=== PATIENT | female | born 1965 | race Caucasian/White ===

== ENCOUNTER → 2023-12-09 13:13 | Outpatient (REF) | payer OTHER, SELFPAY | LOC: HWRAD 13:13 | PROVIDERS: ATTENDING PHYSICIAN Family Medicine | DX: N20.0 Calculus of kidney (principal) | CPT/HCPCS: 76775 ==

== ENCOUNTER → 2023-12-23 16:56 | Outpatient (REF) | payer OTHER, SELFPAY | LOC: HWRAD 16:56 | PROVIDERS: ATTENDING PHYSICIAN Family Medicine | DX: R07.81 Pleurodynia (principal) | CPT/HCPCS: 71101 ==

== ENCOUNTER → 2024-01-16 09:56 | Outpatient (REF) | payer OTHER, SELFPAY | LOC: HWRAD 09:56 | PROVIDERS: ATTENDING PHYSICIAN Specialist; FAMILY PHYSICIAN Family Medicine | DX: N20.0 Calculus of kidney (principal) | CPT/HCPCS: 74018 ==

== ENCOUNTER → 2024-06-04 09:14 | Outpatient (REF) | payer OTHER, SELFPAY | LOC: HWWDC 09:14 | PROVIDERS: ATTENDING PHYSICIAN Obstetrics & Gynecology; FAMILY PHYSICIAN Family Medicine | DX: Z12.31 Encounter for screening mammogram for malignant neoplasm of breast (principal) | CPT/HCPCS: 77063; 77067 ==

== ENCOUNTER 2025-03-31 13:48 | Inpatient (IN) | payer OTHER, SELFPAY ==
[2025-03-31] VITALS (20 sets, daily range): BP systolic 91–133; BP diastolic 49–92; BMI 30.4
[2025-03-31 12:19] LABS: Hematocrit 44.2 % (37.0-47.0); Hemoglobin 14.9 g/dL (12.0-16.0); Mean Corp Hgb Conc. 33.7 g/dL (33.0-37.0); Mean Corpuscular Volume 88.8 fL (81.0-99.0); Nucleated Red Blood Cells % 0 %; Platelet Count 171 10^3/uL (130-400); Red Cell Dist. Width 12.3 % (11.5-14.5)
[2025-03-31 12:31] LABS: INR 1.17; PT 15.2 Sec (11.4-14.6)
[2025-03-31 12:32] LABS: APTT 20.3 Sec (23.4-35.0)
[2025-03-31 12:37] LABS: Blood Urea Nitrogen 14 mg/dl (7-17); Calcium 10.1 mg/dl (8.4-10.2); Carbon Dioxide 22 mmol/L (22-30); Chloride 109 mmol/L (98-107); Estimated Creatinine Clearance 91 ml/min; Glucose 127 mg/dl (70-99); Sodium 139 mmol/L (135-145); eGFR > 60.00
[2025-03-31 12:43] LABS: Troponin I < 0.012 ng/ml
--- NOTE | 2025-03-31 12:43 | EDRN ---
cardiology currently at the pts bedside
--- NOTE | 2025-03-31 12:59 | ED.GENMED ---
History of Present Illness
General
Chief Complaint: Chest Pain
Source: patient
Exam Limitations: none
Time Seen by Provider: 03/31/25 12:03
Nursing documentation reviewed up to this point in time: agreed with
History of Present Illness
History of Present Illness:
59-year-old female with a history of hypertension hyperlipidemia presents to the ER for evaluation of chest pain. Patient reports onset of symptoms 2 days ago and have been essentially constant. She says initially she thought it was heartburn but
symptoms have been persistent which prompted her to finally come to the ER for assessment. She denies any associated nausea. She denies any diaphoresis. She does have some mild shortness of breath. She denies any other acute complaints. Denies
any known cardiac history.
Past History
Past History
ED Past Medical History: Other ( previous kidney stone); Negative Asthma, HTN, Hypercholesterolemia or NIDDM
ED Past Surgical History: None
Social History
Tobacco: Smoker
Alcohol: Occasional
Personal:
Living: with family
Family History
Family History: CAD
Review of Systems
Review of Systems
All Other Systems: ROS reviewed and negative except as documented in HPI and ROS
Constitutional: Denies fever
Respiratory: Reports trouble breathing; Denies cough
Cardiac: Reports chest pain; Denies palpitations
ABD/GI: Denies abdominal pain, nausea or vomiting
: Denies flank pain
Musculoskeletal: Denies edema, neck pain or back pain
Neurological: Denies dizzy or headache
Phy Exam
Physical Exam
Physical Exam:
General: Awake, alert, oriented x3; somewhat anxious appearing
Head: Normocephalic, atraumatic
Eyes: Conjunctiva normal, sclera anicteric
Throat: Airway intact, handling secretions
Neck: Trachea midline, supple without meningismus
Lungs: Clear to auscultation bilaterally, no wheezing, rales, rhonchi
Heart: Tachycardia with regular rhythm, no murmurs, gallops, or rubs appreciated
Abd: Soft, non distended, nontender
Neuro: Grossly intact
Skin: Slightly pale, no rash
Extremities: No edema in extremities, equal pulses in all extremities
Scores
Heart Failure Risk
Heart Failure Risk Score: Not Applicable
Heart Score for Chest Pain Patients
STEMI patient?: Yes
Withdrawal Assessment of Alcohol
Withdrawal Assessment Completed?: Not applicable
Course
Orders/Labs/Results
Orders:
Orders
03/31/25 11:57
EKG [Electrocardiogram (*1)] Urgent
Reason for Study: Chest Pain
EKG- Treatment ONCE
03/31/25 12:07
Electrocardiogram (*1) Urgent
Reason for Study: Chest Pain
EKG- Treatment ONCE
03/31/25 12:09
Basic Metabolic Panel Urgent
Complete Blood Count/With Diff Urgent
Pro-BNP [NT-proBNP] Urgent
Troponin I Urgent
03/31/25 12:13
EKG [Electrocardiogram (*1)] Urgent
Reason for Study: Chest Pain
EKG- Treatment ONCE
03/31/25 12:16
PT/INR [Prothrombin Time] Urgent
PTT Urgent
03/31/25 12:20
Ondansetron Injectable [Zofran] 4 mg .ROUTE .[facility]
03/31/25 12:34
EKG [Electrocardiogram (*1)] Urgent
Reason for Study: Vertigo / Dizzy
EKG- Treatment ONCE
Abnormal Lab Results
03/31/25 03/31/25
12:09 12:16
MPV 10.8 H fL
(7.4-10.4)
Absolute Neuts (auto) 7.8 H 10^3/uL
(1.4-6.5)
Absolute Monos (auto) 1.1 H 10^3/uL
(0.1-0.6)
Lymphocytes % 15.3 L %
(20.5-51.1)
Monocytes % 10.2 H %
(1.7-9.3)
PT 15.2 H Sec
(11.4-14.6)
APTT 20.3 L Sec
(23.4-35.0)
Chloride 109 H mmol/L
(98-107)
Glucose 127 H mg/dl
(70-99)
03/31/25 12:09
03/31/25 12:09
Vital Signs
Initial and Last Documented VS:
Initial Vital Signs
Pulse Resp Pulse Ox
121 22 97
03/31/25 12:09 03/31/25 12:09 03/31/25 12:09
Last Documented Vital Signs
Temp Pulse Resp BP Pulse Ox
36.8 C 88 15 120/75 99
03/31/25 12:20 03/31/25 12:46 03/31/25 12:46 03/31/25 12:46 03/31/25 12:46
MDM/Problems Addressed
Differential Diagnosis Includes:
ACS, GERD, PE less likely
MDM/Problems Addressed:
59-year-old female with history as noted presents for evaluation of chest pain for the past few days. Tachycardic but otherwise normal vitals and heart rate actually improved by my assessment. Her triage EKG was concerning with some ST changes in
the inferior leads�initial EKG discussed with cardiology and borderline for STEMI. Recommended initiating ACS protocols with aspirin and Brilinta, heparin and trial of nitroglycerin with serial EKGs to see if there are any changes. Low threshold
for cardiac catheterization but hold off on STEMI alert for now.
After medications patient actually reports worsening of symptoms became diaphoretic, lightheaded, severe nausea with continued chest pain. Repeat EKG essentially stable�if anything slightly worsening elevations in the inferior leads. Discussed
with cardiology at length on multiple reassessments. Cardiology at bedside and decision made to take for cardiac catheterization. Patient escorted to Supervising Broker by me.
Chronic conditions affecting care:
Hypertension, hyperlipidemia
*Pulse Oximetry
SaO2: 99
Nasal Cannula flow liters per minute: 2
Oxygen Mode of Delivery: Room air
Patient hypoxic: no (99%)
*EKG
Interpreted by ED Provider?: Yes
Heart Rate: 107
Rate: tachycardiac
Rhythm: sinus tachycardia
Phyllis: normal axis
Interval: normal interval
QRS Pattern: normal QRS
Ischemia: ST elevation
*Critical Care Note
Total Time (30-74mins, 75-104mins- exclusive of procedures): Not Applicable
Data Reviewed
Source: patient and records
Patient Management
Discussion with other providers: Sole Splitter (Discussed at length with interventional cardiology)
Escalation/DeEscalation of care consider admission/obs:
Admission indicated�Supervising Broker
ED Attending Note
-
Portions of this chart may have been created with voice recognition software.� Occasional wrong word or��sound alike� substitutions may have occurred due to the inherent limitations of voice recognition software.
Discharge Plan
Departure
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
Date of Disposition: 03/31/25
Time of Disposition: 13:04
Admit to doctor: Ilana
Presentation/result/management discussed w/ accepting MD/DO: cardiology
Discharge Problem:
ST elevation (STEMI) myocardial infarction
Prescriptions:
No Action
ibuprofen [Advil Liqui-Gel] 200 MG capsule
200 mg PO PRN PRN (Reason: pain)
acetaminophen-codeine 1 TABLET tablet
1 tab PO Q6HPRN PRN (Reason: pain)
losartan 50 mg Tablet
50 mg PO DAILY
rosuvastatin 5 mg Tablet
5 mg PO DAILY
Referrals:
UNKNOWN - PT NOT,INTERVIEWE [Family Provider]
Interventions
Interventions:
*Risk Screen - Suicide Last Done: 03/31/25 12:20
*General Assessment Last Done: 03/31/25 12:20
*Neglect/Abuse Screening Last Done: 03/31/25 12:20
*ED- Fall Risk Assessment Last Done: 03/31/25 12:20
*ED COVID-19 Vaccine History Last Done: 03/31/25 12:20
*Nursing Disposition Last Done: 03/31/25 12:40
ED- Cardiac Assessment Last Done: 03/31/25 12:26
Discharge Date and Time
Print Language: EGYPTIAN
[2025-03-31 13:14] LABS: ACT-LR - POC 187 Seconds (116-155)
--- NOTE | 2025-03-31 13:53 | PTCARENOTE ---
Rec'd Pt s/p card cath, A,A+OX3, denies pain. R radialband intact, R femoral dsg D+I. VSS.
[2025-03-31] MEDS: NSS 1000 IV (14:37)
--- NOTE | 2025-03-31 15:47 | ITS.CL.CATH ---
Hospital Admitting Clerk - Catheterization
Cardiac Catheterization
Procedure Report:
LEFT HEART CATHETERIZATION
Date of Procedure: March 31, 2025
Referring: [facility] emergency department
PROCEDURES:
1. Left heart catheterization, coronary angiogram.
2. Moderate sedation.
INDICATION: Khadijah is a 59-year-old female with past medical history of hypertension, hyperlipidemia, family history of premature coronary artery disease in her dad with an RI in his early 60s, former smoker, quit 4 years ago, prediabetic who
presents today to the emergency room with ongoing episodes of chest discomfort over the last 2 days associated with nausea and some shortness of breath found to have a EKG concerning for possible inferior ST elevation RI after she received
sublingual nitroglycerin in the emergency room. She was given full dose aspirin in the emergency room along with 5000 units of unfractionated IV heparin and 1 sublingual nitroglycerin. She also received 180 mg of Brilinta.
ACCESS: Right radial artery, 6Fr. sheath, under US guidance.
HEMODYNAMICS : (mmHg)
AO (s/d) : 119/76
LVEDP : 19
No significant gradient across the aortic valve to suggest aortic stenosis.
CORONARY FINDINGS
Dominance: Left
Left Main Trunk (LMT): Large caliber vessel that gives rise to the LAD and LCx branches and is free of angiographic disease.
Left Anterior Descending Artery (LAD): Large caliber vessel that gives off 1 major diagonal branch as it courses along the anterior inter-ventricular groove before wrapping around the cardiac apex. No obstructive coronary artery disease. Distal to
apical LAD appears likely normal tapering however cannot definitively rule out apical LAD SCAD.
Left Circumflex Artery (LCx): Large caliber vessel that gives off 3 major obtuse marginal (OM) branches as it courses along the atrio-ventricular (AV) groove. The LCx and its branches are free of angiographic disease.
Right Coronary Artery (RCA): Small caliber non-dominant vessel with no obstructive coronary artery disease.
SEDATION: 37 minutes of procedural sedation was utilized. IV Midazolam and IV Fentanyl were administered. An independent medical oncologist was present to assist with and help manage the patient's level of consciousness and physiologic status.
RADIATION SUMMARY: Fluoro Time (min): 3.8, Dose (mGy): 227.43, DAP (Gy.cm2) : 18.6
Closure Device: There were no immediate intra-procedural complications. The sheath was pulled in the label stamper and a vascular-band applied to the right wrist for radial artery hemostasis using the patent hemostasis technique.
CONCLUSIONS
1. No obvious obstructive coronary artery disease to explain ECG changes or presenting clinical story.
2. Distal to apical LAD appears likely normal tapering however cannot definitively rule out apical LAD SCAD.
3. LVEDP of 19 mmHg.
RECOMMENDATIONS
1. Wean radial band per protocol. Monitor right hand perfusion and for bleeding from the radial site following removal of the vascular-band following trans-radial access.
2. Bedrest per protocol for femoral access.
3. Continue aggressive medical therapy and risk factor modification for secondary CAD prevention.
4. Full echocardiogram to assess biventricular function and rule out any significant valvular abnormalities.
5. Explore and rule out noncardiac causes of chest pain.
Xochitl Preciado MD, FAC, [facility]
--- NOTE | 2025-03-31 16:09 | CON.CAR ---
Consultation
Consultation Request
Date/Time Consultation Requested: 03/31/2025
Date/Time Consultation Performed: 03/31/2025
Requesting Provider: Jarvis WALKER
Performing Provider: Xochitl Preciado
Reason for Consultation: CP
Medical History
-
Chief Complaint: Chest Pain
History of Present Illness:
Khadijah is a 59-year-old female with past medical history of hypertension, hyperlipidemia, family history of premature coronary artery disease in her dad with an LA in his early 60s, former smoker, quit 4 years ago, prediabetic who presents today to
the emergency room with ongoing episodes of chest discomfort over the last 2 days associated with nausea and some shortness of breath found to have a EKG concerning for possible inferior ST elevation LA after she received sublingual nitroglycerin in
the emergency room. She was given full dose aspirin in the emergency room along with 5000 units of unfractionated IV heparin and 1 sublingual nitroglycerin. She also received 180 mg of Brilinta.
Past Medical History
Past Medical History: HTN and Hypercholesterolemia
Past Surgical History: None
Social History
Tobacco: Former Smoker (quit 4yrs ago)
Alcohol: Occasional
Drug: None
Personal:
Living: With Family
Employment: Employed
Family History
Family History: Early CAD (dad with LA in early 60s)
Allergies / Home Medications
Allergy/AdvReac Type Severity Reaction Status Date / Time
No Known Allergies Allergy Verified 05/30/16 13:36
�Medication �Instructions �Recorded �Confirmed �Type
acetaminophen 300 mg-codeine 30 mg 1 tab PO Q6HPRN PRN pain 05/30/16 03/31/25 History
tablet
ibuprofen 200 mg capsule (Advil 200 mg PO PRN PRN pain 05/30/16 03/31/25 History
Liqui-Gel)
losartan 50 mg tablet 50 mg PO DAILY 03/31/25 03/31/25 History
rosuvastatin 5 mg tablet 5 mg PO DAILY 03/31/25 03/31/25 History
Review of Systems
-
All other systems: Negative unless noted
Physical Exam
Vital Signs
Temp Pulse Resp BP Pulse Ox
98.2 F 94 22 96/83 99
03/31/25 12:20 03/31/25 12:50 03/31/25 12:50 03/31/25 12:50 03/31/25 13:05
Lab Results
03/31/25 12:09
03/31/25 12:09
Troponin I < 0.012 ng/ml 03/31/25 12:09
Nnw-I-Ouszmmotjhk Pept 180 pg/ml 03/31/25 12:09
Physical Exam
General: Well Developed, Well Nourished and Other (mild distress from CP)
Respiratory: Clear and Non Labored Respirations; Negative Wheezes or Crackles
Cardiac: S1/S2 and Regular Rhythm; Negative Murmur or Rub
Breast: Deferred by me
GI: Soft, Non Tender, Non Distended and Normal Bowel Sounds
Musculoskeletal: No Clubbing, No Cyanosis and No Edema
Skin: Warm
Neuro: AO x 3 and Nonfocal/Grossly Intact
Psych: Calm
Impression / Plan
-
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
Chest pain
ECG with inferior ST elevation however heart catheterization with no clear etiology: Distal to apical LAD appears likely normal tapering however cannot definitively rule out spontaneous coronary artery dissection (scad)
Hypertension
Hyperlipidemia
Former smoker, quit 4 years ago
Premature coronary artery disease in dad in early 60s
Recommendations:
1. Full echocardiogram to assess biventricular function and rule out any significant valvular disease.
2. Continue monitoring on telemetry with trending troponins and EKGs.
3. Continue daily baby aspirin, high intensity statin, low-dose beta-makayla. No clear indication for second antiplatelet agent.
4. Workup noncardiac causes of chest pain.
5. Aggressive management of cardiovascular risk factors.
6. Management of radial artery access and femoral access.
Xochitl Preciado MD, FAC, [facility]
Data Reviewed
-
EKG: Tracing Personally Visualized and interpreted
Radiology: Report Reviewed by me
Labs: Labs Reviewed by me
Old Records: Reviewed
Critical Care Time (in minutes): 34
[2025-03-31 16:22] LABS: Troponin I < 0.012 ng/ml
--- NOTE | 2025-03-31 16:42 | HPS.HSE ---
Family Physician
-
Family Physician: INTERVIEWE UNKNOWN - PT NOT
Chief Complaint
-
Chest pain
History of Present Illness
59-year-old female developed substernal chest pain Vj night and lasted till this morning when she decided to get it evaluated in the emergency room. Has never had chest pain like this before.
[place] like a sharp pain worse with deep breathing. Relieved by lying on her right side, worse when lying on her left side.
No significant shortness of breath or dyspnea. Does have mild heartburn occasionally.
Yesterday had chills and mild flulike symptoms but subsequently resolved. No associated sore throat or cough.
Denies any lower extremity pain or swelling.
Denies history of DVT or PE.
History of heavy smoking, quit 4 years ago. Rarely drinks alcohol.
No history of malignancy. Not on hormonal therapy.
Only travel is driving to [place] to visit her parents.
Chest pain resolved completely during my assessment.
Medical History
Past Medical History
Past Medical History: Reports Other
Additional Past Medical History:
Essential hypertension
Hyperlipidemia
Past Surgical History: Reports None
Social History
Tobacco: Former Smoker
Alcohol: Occasional
Drug: None
Employment: Employed
Family History
Family History: CAD (Father) and Other (Sister with adrenal tumor)
Allergies / Home Medications
Allergies reflects when Allergies were last updated in [email or web address].
Home Medications with original date entered in [email or web address]
Allergy/Medication List:
Allergies
Allergy/AdvReac Type Severity Reaction Status Date / Time
No Known Allergies Allergy Verified 05/30/16 13:36
Home Medications
acetaminophen 300 mg-codeine 30 mg tablet 1 tab PO Q6HPRN PRN pain 05/30/16
ibuprofen 200 mg capsule (Advil Liqui-Gel) 200 mg PO PRN PRN pain 05/30/16
losartan 50 mg tablet 50 mg PO DAILY 03/31/25
rosuvastatin 5 mg tablet 5 mg PO DAILY 03/31/25
Review of Systems
-
History Source: Patient
A 12 point ROS was completed and negative except as noted: Yes
Physical Exam
Vital Signs
Vital Signs
Temp Pulse Resp BP Pulse Ox
98.2 F 86 20 100/78 98
03/31/25 16:12 03/31/25 16:15 03/31/25 16:12 03/31/25 16:00 03/31/25 16:15
Physical Exam
General: Well Developed, Well Nourished, No Apparent Distress and Comfortable
HEENT: NormoCephalic, Anicteric and Moist mucous membranes
Respiratory: Clear
Cardiac: S1/S2 and Regular Rhythm
Breast: Deferred by me
GI: Soft, Non Tender and Non Distended
Genito-urinary: Deferred by me
Musculoskeletal: No Clubbing, No Cyanosis and No Edema
Skin: Warm and Dry
Neuro: AO x 3
Hematologic/Lymphatic: No Lymphadenopathy
Psych: Calm
Laboratory Results
-
03/31/25 12:09
03/31/25 12:09
Laboratory Results
PT 15.2 Sec (11.4-14.6) H 03/31/25 12:16
INR 1.17 03/31/25 12:16
APTT 20.3 Sec (23.4-35.0) L 03/31/25 12:16
Total Bilirubin Cancelled 03/31/25 12:09
AST Cancelled 03/31/25 12:09
ALT Cancelled 03/31/25 12:09
Alkaline Phosphatase Cancelled 03/31/25 12:09
Troponin I < 0.012 ng/ml 03/31/25 15:46
Impression/Plan
-
Chest pain -ACS essentially ruled out, cardiac catheterization without obstructive CAD. Discussed with ruching machine operator, Dr Preciado. Clinically unlikely to be spontaneous coronary artery dissection. Troponin x 2 negative.
At this point we do not have a clear diagnosis as to etiology of her chest pain. Differential diagnosis remains broad including esophagitis, acid reflux, pulmonary embolism, or other.
D-dimer ordered. 2 view chest x-ray ordered.
IV Protonix ordered.
Admit to IVU.
Cardiology consulted. Echocardiogram in the morning.
Essential hypertension -controlled on losartan.
Hyperlipidemia -on rosuvastatin.
Obesity due to excess calories
Full code
[2025-03-31] MEDS: PROTONIX IV 40 MG IV (16:55)
[2025-03-31] MEDS: NSS (PRESERVATIVE FREE) 10 ML IV (16:56)
[2025-03-31] MEDS: FLUSH (NSS) 2 FLUSH IV (16:56)
[2025-03-31 18:02] LABS: COVID-19 Antigen Negative (Negative)
[2025-03-31 18:06] LABS: Hepatitis C Antibody Negative (Negative)
[2025-03-31 18:11] LABS: D-Dimer 0.27 ug/mlFEU (0.00-0.50)
[2025-03-31] MEDS: TOPROL XL 12.5 MG PO (18:39)
[2025-03-31] MEDS: LOVENOX 40 MG SC (18:40)
--- NOTE | 2025-03-31 19:24 | PTCARENOTE ---
Pt refused 1800 dose of Rosuvastatin, she takes only 5 mg at home and didn't want to take 20 mg.
[2025-04-01 00:15] LABS: Troponin I < 0.012 ng/ml
--- NOTE | 2025-04-01 00:58 | PTCARENOTE ---
Assumed care of the pt @ 1900. Pt is AAOx3 SR on the monitor VSS Rt rad and rt fem cath site dressing c/d/i. Call pimentel within reach.
[2025-04-01] MEDS: TYLENOL 650 MG PO (02:15)
[2025-04-01 02:18] VITALS: BP 138/68
[2025-04-01 05:22] VITALS: BP 129/80
[2025-04-01 05:58] LABS: Hematocrit 40.6 % (37.0-47.0); Hemoglobin 13.5 g/dL (12.0-16.0); Mean Corp Hgb Conc. 33.3 g/dL (33.0-37.0); Mean Corpuscular Volume 90.0 fL (81.0-99.0); Nucleated Red Blood Cells % 0 %; Platelet Count 179 10^3/uL (130-400); Red Cell Dist. Width 12.3 % (11.5-14.5)
[2025-04-01 06:26] LABS: Blood Urea Nitrogen 11 mg/dl (7-17); Calcium 9.7 mg/dl (8.4-10.2); Carbon Dioxide 22 mmol/L (22-30); Chloride 113 mmol/L (98-107); Estimated Creatinine Clearance 91 ml/min; Glucose 119 mg/dl (70-99); HDL Cholesterol 44 mg/dl; LDL Cholesterol, Calculated 64 mg/dl; Potassium 4.5 mmol/L (3.5-5.1); Sodium 142 mmol/L (135-145); Very Low Density Lipoprotein 21 mg/dl (0-30); eGFR > 60.00
[2025-04-01 06:36] LABS: Troponin I < 0.012 ng/ml
[2025-04-01 08:06] VITALS: BP 109/47
[2025-04-01 08:07] VITALS: BP 126/70
[2025-04-01] MEDS: PROTONIX IV 40 MG IV (08:14)
[2025-04-01] MEDS: LOW STRENGTH ASPIRIN 81 MG PO (08:14)
[2025-04-01] MEDS: NSS (PRESERVATIVE FREE) 10 ML IV (08:14)
[2025-04-01] MEDS: TOPROL XL 12.5 MG PO (08:14)
--- NOTE | 2025-04-01 09:36 | W.PN.CARDCBS ---
Addendum entered and electronically signed by Reji Tovar MD 04/01/25 13:51:
I saw and examined the patient.
The SPACE SYSTEMS OPERATIONS SUPERINTENDENT or PA's note was reviewed and I agree with the note.
Comment: General: Well developed, well nourished in NAD.
Neck: Supple, no JVD, HJR, carotids +2 B/L, no bruits bilaterally.
Heart: Non displaced PMI, RRR, no murmurs, No S3, S4, no rubs.
Lungs: Clear to auscultation bilaterally, no wheeze, rhonchi, rubs bilaterally,
normal expiratory phase.
Extremities: No clubbing, cyanosis or edema bilaterally.
Neuro: Grossly nonfocal, awake, alert and oriented x3.
Troponins negative, echocardiogram normal. Likely noncardiac chest pain. Discussed with primary service. Stable cardiology status for discharge.
Original Note:
Today's Communication / Plan
-
check echo
workup noncardiac CP
Impression / Plan
-
PCP:
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
Chest pain
ECG with inferior ST elevation however heart catheterization with no clear etiology: Distal to apical LAD appears likely normal tapering however cannot definitively rule out spontaneous coronary artery dissection (scad)
Hypertension
Hyperlipidemia
Former smoker, quit 4 years ago
Premature coronary artery disease in dad in early 60s
Recommendations:
-no recurrent CP
-echo today 04/01.
-troponins negative x 4
-telem personally reviewed: NSR 80s
-rosuvastatin increased from 5 mg daily to 20 mg daily - pt not willing to take this higher dose. LDL 64 on admission on Rosuv 5 mg. Explained goal LDL <55. She is willing to take Rosuv 10 mg daily - will change dose
-Continue daily baby aspirin, high intensity statin, low-dose beta-makayla. No clear indication for second antiplatelet agent.
-Workup noncardiac causes of chest pain.
-Aggressive management of cardiovascular risk factors.
-Management of radial artery access- site without hematoma, drainage
Progress Note - Driller Operator
Subjective
Date of Service: April 01, 2025
no recurrent CP
didn't sleep well
doesn't want to take rosuvastatin 20 mg dose
Objective
Labs:
04/01/25 05:37
04/01/25 05:37
Labs
Hgb 13.5 g/dL (12.0-16.0) 04/01/25 05:37
Hct 40.6 % (37.0-47.0) 04/01/25 05:37
Plt Count 179 10^3/uL (130-400) 04/01/25 05:37
PT 15.2 Sec (11.4-14.6) H 03/31/25 12:16
INR 1.17 03/31/25 12:16
APTT 20.3 Sec (23.4-35.0) L 03/31/25 12:16
Sodium 142 mmol/L (135-145) 04/01/25 05:37
Potassium 4.5 mmol/L (3.5-5.1) 04/01/25 05:37
BUN 11 mg/dl (7-17) 04/01/25 05:37
Creatinine 0.6 mg/dL (0.6-1.0) 04/01/25 05:37
Glucose 119 mg/dl (70-99) H 04/01/25 05:37
Troponins
03/31/25 03/31/25 03/31/25
12:09 15:46 23:34
Troponin I < 0.012 < 0.012 < 0.012
04/01/25
05:37
Troponin I < 0.012
Vital Signs and I&O:
Vital Signs
Temp Pulse Resp BP Pulse Ox
97.8 F 72 13 126/70 98
04/01/25 08:04 04/01/25 09:15 04/01/25 08:04 04/01/25 08:07 04/01/25 08:07
Vital Signs
Temp Pulse Resp BP Pulse Ox
97.8 F 72 13 126/70 98
04/01/25 08:04 04/01/25 09:15 04/01/25 08:04 04/01/25 08:07 04/01/25 08:07
Intake & Output
03/30/25 03/31/25 04/01/25 04/02/25
06:59 06:59 06:59 06:59
Intake Total 327 / 327
Output Total 400 / 400
Balance -73 / -73
--- NOTE | 2025-04-01 10:10 | CARDSERVLU ---
Echocardiogram with Lumason completed after protocol screening completed. Allergies verified.
Patent IV site: __L hand___
IV site flushed with 0.9% NaCl pre and post administration.
Diluted bolus method utilized to enhance visualization of ventricular mccarthy.
Total volume given: __1.5__ mL
Patient tolerated all procedures well without complications.
[2025-04-01 10:14] LABS: Glycohemoglobin (HgbA1c) 5.7 % (4.0-5.6)
[2025-04-01 11:15] VITALS: BP 108/64
--- NOTE | 2025-04-01 12:14 | PTCARENOTE ---
Rec'd pt at handoff. Tele- SR. Assessment completed as documented. Pt has no complaints/discomfort at this time. Plan of care reviewed w/ pt and verbalizes understanding. Call loren w/in reach.
--- NOTE | 2025-04-01 12:51 | W.PN.HOSP.TC ---
Today's Communication/Plan
-
Discharge
Assessment / Plan
Assessment / Plan
Gen-AAOx3, NAD
HEENT-NC, AT, anicteric, clear oral mm
Neck-supple
CV-reg, no M, +S1/S2
Lungs-clear B/L
Abd-soft, NT, ND
Ext-no edema
Musculoskeletal-no cyanosis, clubbing
Skin-warm and dry
Neuro-grossly non-focal
Psych-calm, cooperative
Chest pain -cardiac etiology ruled out. Cardiac catheterization without CAD. Troponins negative x 3. Clinically doubt SCAD. Stop aspirin, metoprolol. Discussed with cardiology.
Echocardiogram completed this morning, LVEF 64%, mild septal hypertrophy, no regional wall motion abnormalities.
Unlikely to be pulmonary embolism with normal D-dimer. Chest x-ray without significant pathology.
Esophageal disease such as spasm or esophagitis or other etiology remains possible. She does like to drink cold beverages with lots of ice. Recommend abstaining from cold liquids. Discussed with patient. Continue Protonix on discharge.
If chest pain recurs or persists then recommend outpatient GI follow-up.
Essential hypertension -stable.
Hyperlipidemia -rosuvastatin.
Obesity due to excess calories
Full code
Dispo -medically stable for discharge home today. Outpatient follow-up with PCP. Updated at the bedside.
32 minutes spent in discharge process.
Anticipated Discharge: Today
Subjective/Interval History
-
Date of Service: April 01, 2025
Patient seen and examined. Feels fine, no complaints. Denies chest pain.
Objective Data
-
Labs:
Laboratory Results
04/01/25
05:37
WBC 7.6
Hgb 13.5
Hct 40.6
Plt Count 179
Sodium 142
Potassium 4.5
Chloride 113 H
Carbon Dioxide 22
BUN 11
Creatinine 0.6
Glucose 119 H
Calcium 9.7
Vital Signs:
Vital Signs
Temp Pulse Resp BP Pulse Ox
98.5 F 77 18 108/64 98
04/01/25 11:15 04/01/25 11:45 04/01/25 11:15 04/01/25 11:15 04/01/25 11:15
I&O
03/31/25 04/01/25 04/02/25
06:59 06:59 06:59
Intake Total 327 / 327 400 / 400
Output Total 400 / 400
Balance -73 / -73 400 / 400
Review of Systems
-
History Source: Patient
All other systems: Reviewed and negative
--- NOTE | 2025-04-01 12:55 | W.DS.TRANS ---
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
-
Discharge Instructions:
Discharge Diagnosis/Procedures Non-cardiac chest pain
Diet Regular
Activity As tolerated
Driving Restrictions As prior to admission
Bathing Restrictions None
Instructions:
Stand-Alone Forms:
Changes to Home Medications: No
Discharge Medications:
DC Medications w/original date entered in [employer]
acetaminophen 300 mg-codeine 30 mg tablet 1 tab PO Q6HPRN PRN pain 05/30/16
losartan 50 mg tablet 50 mg PO DAILY 03/31/25
rosuvastatin 5 mg tablet 5 mg PO DAILY 03/31/25
pantoprazole 40 mg tablet,delayed release (Protonix) 40 mg PO DAILY #30 tabs 04/01/25
Home Medication Changes
Pending Results: No
--- NOTE | 2025-04-01 13:47 | PTCARENOTE ---
D/c to home w/ spouse.
--- NOTE | 2025-04-01 18:09 | CM ---
pt prev indep, lives with her husb, plan is for dc to home today, no needs noted
== END 2025-04-01 13:47 | disposition home or self-care (01) | DRG 287 ==
LOC: IVU 13:48
PROVIDERS: ADMITTING PHYSICIAN Internal Medicine Interventional Cardiology; ATTENDING PHYSICIAN Hospitalist; CONSULT PHYSICIAN Internal Medicine Interventional Cardiology; EMERGENCY PHYSICIAN Emergency Medicine
PROC: B211YZZ Fluoroscopy of Multiple Coronary Arteries using Other Contrast (ICD-10-PCS; 2025-03-31)
PROC: 4A023N7 Measurement of Cardiac Sampling and Pressure, Left Heart, Percutaneous Approach (ICD-10-PCS; 2025-03-31)
DX: R07.89 Other chest pain (principal); K22.4 Dyskinesia of esophagus; R73.03 Prediabetes; I10 Essential (primary) hypertension; E78.00 Pure hypercholesterolemia, unspecified; E66.09 Other obesity due to excess calories; Z82.49 Family history of ischemic heart disease and other diseases of the circulatory system; Z87.891 Personal history of nicotine dependence; Z68.30 Body mass index [BMI] 30.0-30.9, adult; Z11.52 Encounter for screening for COVID-19; Z79.899 Other long term (current) drug therapy
CPT/HCPCS: 71046; 80048; 80061; 83036; 83880; 84484; 85025; 85347; 85379; 85610; 85730; 86803; 87811; 93005; 93306; 93458; 99152; 99153; 99285; C1760; C1769; C1887; C1894; Q9950; Q9967

== ENCOUNTER → 2025-05-10 13:18 | Outpatient (REF) | payer OTHER, SELFPAY | LOC: HWRAD 13:18 | PROVIDERS: ATTENDING PHYSICIAN Specialist; FAMILY PHYSICIAN Family Medicine | DX: N20.0 Calculus of kidney (principal) | CPT/HCPCS: 74018 ==